=== PATIENT | male | born 1980 | race Caucasian/White ===

== ENCOUNTER 2017-05-13 12:36 | Day surgery (SDC) | payer OTHER ==
[2017-05-13] MEDS ORDERED: PROPOFOL 20 ML (14:20)
== END 2017-05-13 17:58 | disposition home or self-care (01) ==
LOC: GIL 12:36
DX: K29.30 Chronic superficial gastritis without bleeding (principal); D12.6 Benign neoplasm of colon, unspecified; G40.909 Epilepsy, unspecified, not intractable, without status epilepticus
CPT/HCPCS: 43239; 88305; 88312; 88313

== ENCOUNTER 2017-07-04 12:55 | Emergency (ER) | payer OTHER ==
[2017-07-04] MEDS: SOD CHLORIDE 0.9% 1,000 ML IV (13:31)
[2017-07-04 13:47] LABS: ADD MAN DIFF? NO
[2017-07-04 13:49] LABS: BASOPHIL # 0.1 10^3/ul (0.0-0.1); BASOPHILS % 0.8 % (0.0-2.0); EOSINOPHILS % 0.3 % (0.0-7.0); HEMATOCRIT 47.6 % (42.0-52.0); HEMOGLOBIN 16.7 g/dl (14.0-18.0); LYMPHOCYTES # 1.7 10^3/ul (0.8-2.9); LYMPHOCYTES % 17.7 % (15.0-51.0); MEAN CORPUSCULAR HEMOGLOBIN 31.9 pg (29.0-33.0); MEAN CORPUSCULAR HGB CONC 35.1 g/dl (32.0-37.0); MEAN PLATELET VOLUME 9.2 fl (7.4-10.4); MONOCYTE # 0.7 10^3/ul (0.3-0.9); MONOCYTES % 6.6 % (0.0-11.0); NEUTROPHIL # 7.3 10^3/ul (1.6-7.5); NEUTROPHILS % 74.4 % (39.0-77.0); PLATELET COUNT 328 10^3/UL (140-415); RED BLOOD COUNT 5.23 10^6/ul (4.70-6.10); RED CELL DISTRIBUTION WIDTH 11.7 % (11.5-14.5)
[2017-07-04 13:49] LABS: WHITE BLOOD COUNT 9.8 10^3/ul (4.8-10.8)
[2017-07-04] MEDS: LEVETIRACETAM 1000 MG (PMX) 100 ML IVPB (13:55)
[2017-07-04] MEDS ORDERED: LORAZEPAM 2 MG INJ (13:58)
[2017-07-04] MEDS: LORAZEPAM 2 MG INJ IV (13:59)
[2017-07-04 14:17] LABS: ANION GAP 19 (8-16); BLOOD UREA NITROGEN 14 mg/dl (7-20); CALCIUM 9.5 mg/dl (8.4-10.2); CARBON DIOXIDE 31 mmol/L (21-31); CHLORIDE 101 mmol/L (97-110); GLUCOSE 98 mg/dl (70-220); POTASSIUM 3.9 mmol/L (3.5-5.1); SODIUM 147 mmol/L (135-144)
[2017-07-04 14:30] LABS: ADD UMIC YES; UR ASCORBIC ACID NEGATIVE (NEGATIVE); UR BILIRUBIN (Dip) NEGATIVE (NEGATIVE); UR BLOOD (Dip) NEGATIVE (NEGATIVE); UR CLARITY CLEAR (CLEAR); UR COLOR AMBER (YELLOW); UR GLUCOSE (Dip) NEGATIVE (NEGATIVE); UR KETONES (Dip) TRACE mg/dL (NEGATIVE); UR LEUKOCYTE ESTERASE (Dip) NEGATIVE Leu/ul (NEGATIVE); UR MUCUS FEW /HPF (NONE SEEN); UR NITRITE (Dip) NEGATIVE (NEGATIVE); UR RBC 2 /HPF (0-5); UR SPECIFIC GRAVITY (Dip) 1.032 (1.003-1.030); UR TOTAL PROTEIN (Dip) 1+ mg/dl (NEGATIVE); UR UROBILINOGEN (Dip) 1+ mg/dL (NEGATIVE); UR WBC 2 /HPF (0-5)
== END 2017-07-04 19:00 | disposition home or self-care (01) ==
LOC: E/R 12:55
DX: G40.909 Epilepsy, unspecified, not intractable, without status epilepticus (principal); R40.2132 Coma scale, eyes open, to sound, at arrival to emergency department; R40.2222 Coma scale, best verbal response, incomprehensible words, at arrival to emergency department; R40.2352 Coma scale, best motor response, localizes pain, at arrival to emergency department
CPT/HCPCS: 36415; 80048; 80156; 81001; 82962; 85025; 96374; 96375; 99284-25